=== PATIENT | male | born 1965 | race Caucasian/White ===

== ENCOUNTER 2016-03-07 18:46 | Emergency (ER) | payer OTHER ==
[~2016-03-07] VITALS: Ht 172.7 cm; Wt 104.3 kg
[~2016-03-07 18:46] MED LIST: OXYCONTIN40 MG PO
[2016-03-07 19:32] LABS: HEMATOCRIT 41.6 % (38.0-50.0); MCH 31.2 PG (29.0-34.0); MCHC 34.4 G/DL (30.0-36.0); MCV 90.6 FL (86-99); MEAN PLAT.VOLUME 9.9 uM^3 (9.0-12.4); PLATELET COUNT 253 K/uL (156-360); RBC DIS.WIDTH-SD 38.8 % (39-53); RED BLOOD COUNT 4.59 M/uL (4.00-5.50)
[2016-03-07 19:40] LABS: CHLORIDE 101 mEq/L (99-109)
[2016-03-07 19:41] LABS: POTASSIUM 4.1 mEq/L (3.7-5.4); SODIUM 136 mEq/L (136-147)
[2016-03-07 19:42] LABS: GLUCOSE 104 mg/dL (70-99)
[2016-03-07 19:44] LABS: ANION GAP 9 MEQ/L (2-14)
[2016-03-07 19:46] LABS: GFR ESTIMATE (CALCULATED) > 59 mL/min/
[2016-03-07 19:47] LABS: UREA NITROGEN (BUN) 12 mg/dL (9-23)
[2016-03-07] MEDS ORDERED: METHADONE10 MG PO (23:04)
[2016-03-07] MEDS ORDERED: KEFLEX500 MG PO (23:19)
[2016-03-07] MEDS ORDERED: ZOFRAN ODT4 MG PO (23:19)
[2016-03-07 23:33] VITALS: BP 148/67
== END 2016-03-07 23:35 | disposition home or self-care (01) ==
LOC: EME 18:46
DX: L03.115 Cellulitis of right lower limb (principal); G89.29 Other chronic pain; F17.200 Nicotine dependence, unspecified, uncomplicated
CPT/HCPCS: 80048; 85027; 93971; 99281; 99284; J0690

== ENCOUNTER 2017-09-24 10:05 | Emergency (ER) | payer OTHER ==
[~2017-09-24] VITALS: Ht 172.7 cm; Wt 102.9 kg
[~2017-09-24 10:05] MED LIST changes: +KEFLEX500 MG PO; +METHADONE10 MG PO; +ZOFRAN ODT4 MG PO
[2017-09-24 10:34] LABS: HEMATOCRIT 42.6 % (38.0-50.0); HEMOGLOBIN 14.5 G/DL (12.5-16.6); MCH 31.3 PG (29.0-34.0); MCV 91.8 FL (86-99); PLATELET COUNT 279 K/uL (156-360); RED BLOOD COUNT 4.64 M/uL (4.00-5.50); WHITE BLOOD COUNT 10.7 K/uL (4.1-10.2)
[2017-09-24 10:45] LABS: APPEARANCE CLEAR ((CLEAR)); BILIRUBIN NEGATIVE; BLOOD SMALL; COLOR YELLOW ((YELLOW)); GLUCOSE (STRIP) NEGATIVE; KETONES NEGATIVE; LEUKOCYTES NEGATIVE; NITRITE NEGATIVE; PROTEIN (STRIP) NEGATIVE; SPECIFIC GRAVITY 1.023 (1.000-1.030); UROBILINOGEN 0.2 MG/DL (0.2-1.0)
[2017-09-24 10:46] LABS: CHLORIDE 103 mEq/L (99-109); POTASSIUM 4.6 mEq/L (3.7-5.4); SODIUM 138 mEq/L (136-147)
[2017-09-24 10:47] LABS: BACTERIA RARE /HPF; EPITHELIAL CELLS NONE SEEN /HPF; MUCUS TRACE /LPF; RED BLOOD CELLS 0-5 /HPF (0-5); UCUL ADDED? NO; WHITE BLOOD CELLS 0-5 /HPF (0-5)
[2017-09-24 10:47] LABS: GLUCOSE 142 mg/dL (70-99)
[2017-09-24 10:51] LABS: CREATININE 1.3 mg/dL (0.6-1.3); GFR ESTIMATE (CALCULATED) > 59 mL/min/ (58.99-99999)
[2017-09-24 10:52] LABS: UREA NITROGEN (BUN) 17 mg/dL (9-23)
[2017-09-24 11:36] LABS: ALBUMIN 4.2 g/dL (3.2-4.8)
[2017-09-24 11:38] LABS: TOTAL PROTEIN 7.6 g/dL (6.4-8.3)
[2017-09-24 11:40] LABS: TOTAL BILIRUBIN 0.2 mg/dL (0.0-1.0)
[2017-09-24 11:41] LABS: ALKALINE PHOSPHATASE 69 IU/L (3-129)
[2017-09-24 11:44] LABS: ALT (GPT) 27 IU/L (3-49); AST (GOT) 24 IU/L (2-34); DIRECT BILIRUBIN 0.1 mg/dL (0.0-0.3)
[2017-09-24] MEDS ORDERED: MOTRIN600 MG PO (12:26)
[2017-09-24] MEDS ORDERED: NORCO 5/3251 TABLET PO (12:26)
[2017-09-24] MEDS ORDERED: FLOMAX0.4 MG PO (12:26)
[2017-09-24] MEDS ORDERED: ZOFRAN4 MG PO (12:26)
[2017-09-24 12:48] VITALS: BP 148/79
== END 2017-09-24 12:49 | disposition home or self-care (01) ==
LOC: EME 10:05
DX: N13.2 Hydronephrosis with renal and ureteral calculous obstruction (principal); G89.29 Other chronic pain; F17.200 Nicotine dependence, unspecified, uncomplicated
CPT/HCPCS: 74177; 80048; 80076; 81003; 85027; 99281; 99284; J1885; J2405; J7030